=== PATIENT | male | born 1950 | race Caucasian/White ===

== ENCOUNTER 2020-04-08 06:00 | Outpatient (RCR) | payer MEDICARE, MEDICAID, SELFPAY | END 2020-04-08 23:00 | disposition home or self-care (01) | LOC: TOT 06:00 | PROVIDERS: Referring Provider Nurse Practitioner Family; Visit Provider Nurse Practitioner Family | DX: Z89.511 Acquired absence of right leg below knee (principal) | CPT/HCPCS: 97166 ==

== ENCOUNTER 2020-06-29 01:14 | Emergency (ER) | payer MEDICARE, MEDICAID, SELFPAY ==
[2020-06-29 01:19] VITALS: BP 165/98; PULSE 58; RESP 18; TEMP 36.3; O2SAT 98; BMI 32.7
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
--- NOTE | 2020-06-29 01:53 | PC.NURSE ---
patient to CT
[2020-06-29 03:20] VITALS: BP 162/106; PULSE 63; RESP 17; O2SAT 94
== END 2020-06-29 03:15 ==
PROVIDERS: Emergency Provider Nurse Practitioner Family
DX: S60.222A Contusion of left hand, initial encounter (principal); S16.1XXA Strain of muscle, fascia and tendon at neck level, initial encounter; V53.5XXA Driver of pick-up truck or van injured in collision with car, pick-up truck or van in traffic accident, initial encounter
CPT/HCPCS: 12345; 72125; 73130; 99281; 99283

== ENCOUNTER 2020-09-17 13:22 | Outpatient (RCR) | payer MEDICARE, MEDICAID, SELFPAY | END 2020-09-18 23:59 | disposition home or self-care (01) | LOC: SPT 13:22 | PROVIDERS: PCP Nurse Practitioner Family; Referring Provider Nurse Practitioner Family; Visit Provider Nurse Practitioner Family | DX: L03.116 Cellulitis of left lower limb (principal); L03.115 Cellulitis of right lower limb; R60.0 Localized edema | CPT/HCPCS: 29581; 97140; 97161 ==

== ENCOUNTER 2020-09-19 06:00 | Outpatient (RCR) | payer MEDICARE, MEDICAID, SELFPAY | END 2020-10-18 23:59 | disposition home or self-care (01) | LOC: SPT 06:00 | PROVIDERS: PCP Nurse Practitioner Family; Referring Provider Nurse Practitioner Family; Visit Provider Nurse Practitioner Family | DX: L03.116 Cellulitis of left lower limb (principal); L03.115 Cellulitis of right lower limb; R60.0 Localized edema | CPT/HCPCS: 29581; 97140 ==

== ENCOUNTER 2020-09-19 14:18 | Outpatient (CLI) | payer MEDICARE, MEDICAID, SELFPAY | END 2020-09-19 14:19 | disposition home or self-care (01) | LOC: WOUND 14:19 | PROVIDERS: PCP Nurse Practitioner Family; Visit Provider Thoracic Surgery (Cardiothoracic Vascular Surgery) | DX: L97.822 Non-pressure chronic ulcer of other part of left lower leg with fat layer exposed (principal); L97.819 Non-pressure chronic ulcer of other part of right lower leg with unspecified severity; Z89.511 Acquired absence of right leg below knee | CPT/HCPCS: 11042; 11045; G0463 ==

== ENCOUNTER 2020-09-26 14:20 | Outpatient (CLI) | payer MEDICARE, MEDICAID, SELFPAY | END 2020-09-26 14:21 | disposition home or self-care (01) | LOC: WOUND 14:21 | PROVIDERS: PCP Nurse Practitioner Family; Visit Provider Thoracic Surgery (Cardiothoracic Vascular Surgery) | DX: L97.822 Non-pressure chronic ulcer of other part of left lower leg with fat layer exposed (principal); L97.811 Non-pressure chronic ulcer of other part of right lower leg limited to breakdown of skin; Z89.511 Acquired absence of right leg below knee | CPT/HCPCS: 97597 ==

== ENCOUNTER 2020-10-02 15:14 | Outpatient (CLI) | payer MEDICARE, MEDICAID, SELFPAY | END 2020-10-02 15:15 | disposition home or self-care (01) | LOC: WOUND 15:16 | PROVIDERS: PCP Nurse Practitioner Family; Visit Provider Nurse Practitioner Family | DX: I89.0 Lymphedema, not elsewhere classified (principal); L97.822 Non-pressure chronic ulcer of other part of left lower leg with fat layer exposed; L97.812 Non-pressure chronic ulcer of other part of right lower leg with fat layer exposed; Z89.511 Acquired absence of right leg below knee | CPT/HCPCS: 11042; 11045 ==

== ENCOUNTER 2020-10-09 11:23 | Outpatient (CLI) | payer MEDICARE, MEDICAID, SELFPAY | END 2020-10-09 11:24 | disposition home or self-care (01) | LOC: WOUND 11:24 | PROVIDERS: PCP Nurse Practitioner Family; Visit Provider Thoracic Surgery (Cardiothoracic Vascular Surgery) | DX: L97.812 Non-pressure chronic ulcer of other part of right lower leg with fat layer exposed (principal); Z89.511 Acquired absence of right leg below knee | CPT/HCPCS: 97597 ==

== ENCOUNTER 2020-10-17 13:10 | Outpatient (CLI) | payer MEDICARE, MEDICAID, SELFPAY | END 2020-10-17 13:11 | disposition home or self-care (01) | LOC: WOUND 13:12 | PROVIDERS: PCP Internal Medicine; Visit Provider Nurse Practitioner Family | DX: Z09 Encounter for follow-up examination after completed treatment for conditions other than malignant neoplasm (principal) | CPT/HCPCS: 99212 ==

== ENCOUNTER 2020-10-19 06:00 | Outpatient (RCR) | payer MEDICARE, MEDICAID, SELFPAY | END 2020-11-18 23:59 | disposition home or self-care (01) | LOC: SPT 06:00 | PROVIDERS: PCP Internal Medicine; Referring Provider Nurse Practitioner Family; Visit Provider Nurse Practitioner Family | DX: L03.116 Cellulitis of left lower limb (principal); L03.115 Cellulitis of right lower limb; R60.0 Localized edema | CPT/HCPCS: 29581; 97140 ==

== ENCOUNTER 2020-11-19 06:00 | Outpatient (RCR) | payer MEDICARE, MEDICAID, SELFPAY | END 2020-12-18 23:59 | disposition home or self-care (01) | LOC: SPT 06:00 | PROVIDERS: PCP Internal Medicine; Referring Provider Nurse Practitioner Family; Visit Provider Nurse Practitioner Family | DX: L03.116 Cellulitis of left lower limb (principal); L03.115 Cellulitis of right lower limb; R60.0 Localized edema | CPT/HCPCS: 29581; 97140 ==

== ENCOUNTER 2020-11-20 06:52 | Outpatient (CLI) | payer MEDICARE, MEDICAID, SELFPAY ==
--- NOTE | 2020-11-20 08:45 | USCV_ITS ---
Gaetano Reveles Age: 70 Gender: M : 1950 Exam Date: 11/20/2020 08:22 Ordering Phys: Gaetano Pickett MD (Andy) ([email or web address]) Technologist: Kevin Patel Exam Location: [facility] – [place] Indication: LOWER EXT EDEMA BP: 185 / 87 HR: 64 Rhythm: Sinus Technical Quality: Adequate MEASUREMENTS (Male / Female) Normal Values 2D ECHO LV Diastolic Diameter PLAX 5.8 cm 4.2 - 5.9 / 3.9 - 5.3 cm LV Systolic Diameter PLAX 3.5 cm IVS Diastolic Thickness 1.1 cm 0.6 - 1.0 / 0.6 - 0.9 cm IVS Systolic Thickness 1.3 cm LVPW Diastolic Thickness 1.1 cm 0.6 - 1.0 / 0.6 - 0.9 cm LVPW Systolic Thickness 1.4 cm LVOT Diameter 2.0 cm LV Ejection Fraction 2D Teich 69.3 % LV Ejection Fraction MOD 2C 60.1 % LV Ejection Fraction 2C AL 59.7 % LA Diameter 4.2 cm LA Width 4.5 cm LA Height 5.5 cm RA Width 4.0 cm RA Height 4.3 cm Aorta at Sinotubular Diameter 4.0 cm M-MODE MV E Point Septal Separation 1.2 cm DOPPLER AV Peak Velocity 122.3 cm/s LVOT Peak Velocity 83.0 cm/s AV Area Cont Eq vti 2.6 cm squared AV Area Cont Eq pk 2.2 cm squared MV Area PHT 5.0 cm squared Mitral E to A Ratio 0.7 MV E' Velocity 43.0 cm/s Mitral E to MV E' Ratio 9.5 Mitral E to LV E' Lateral Ratio 9.0 Mitral E to LV E' Septal Ratio 10.0 TR Peak Velocity 128.3 cm/s TR Peak Gradient 6.6 mmHg TV Peak E Velocity 72.0 cm/s Right Atrial Pressure 3.0 mmHg Pulmonary Artery Systolic Pressu 9.6 mmHg FINDINGS Left Ventricle Normal left ventricular size. LV systolic function is normal with EF of 55-60%. No regional wall motion abnormalities. Grade 1 diastolic dysfunction Right Ventricle The right ventricle is normal in size and function. Right Atrium The right atrium is normal in size. Left Atrium The left atrium is normal in size. Mitral Valve Structurally normal mitral valve without significant stenosis or prolapse. There is trace mitral regurgitation. Aortic Valve Grossly normal without stenosis. There is mild aortic regurgitation. Tricuspid Valve Grossly normal without significant stenosis or regurgitation. Insufficient TR jet to calculate RVSP Pulmonic Valve Grossly normal Pericardium Normal pericardium without effusion. Aorta Normal ascending aorta dimension. CONCLUSIONS This is technically limited study because of poor ultrasonic windows. LV systolic function is normal with EF 55 to 60%. Grade 1 diastolic dysfunction. Trace mitral regurgitation. Mild aortic regurgitation. No comparison studies are available Konstantin Yepez MD (Electronically Signed) Final Date: 26 November 2020 22:37 S
--- NOTE | 2020-11-20 08:45 | USCV_ITS ---
Gaetano Reveles Age: 70 Gender: M : 1950 Exam Date: 11/20/2020 07:52 Ordering Phys: Gaetano Pickett MD (Andy) ([email or web address]) Technologist: Kevin Patel Exam Location: [facility] [place] Indication: PAD RIGHT LEFT Brachial 185.00 mmHg Brachial 185.00 mmHg Pressure (mmHg) Waveform Pressure (mmHg) Waveform [employer] 220.00 DPA 220.00 Pre-Exercise Toe Pressure 168.00 Pre-Exercise Toe/Brachial Index 0.91 FINDINGS RT LEG AMPUTEE BELOW THE KNEE Noncompressible arteries in the left leg Normal resting TBI on the left side Normal PVR waveforms CONCLUSIONS 1. No significant arterial obstruction on the left side. 2. Noncompressible vessels, suggestive of extensive arterio sclerosis Dr Jeremy Fiore MD FACC (Electronically Signed) Final Date: 21 November 2020 08:38 S
== END 2020-11-20 06:53 | disposition home or self-care (01) ==
LOC: RAD 06:53
PROVIDERS: PCP Internal Medicine; Visit Provider Thoracic Surgery (Cardiothoracic Vascular Surgery)
DX: R60.0 Localized edema (principal); M79.605 Pain in left leg; M79.604 Pain in right leg; I08.0 Rheumatic disorders of both mitral and aortic valves
CPT/HCPCS: 93306; 93923

== ENCOUNTER 2020-12-19 06:00 | Outpatient (RCR) | payer MEDICARE, MEDICAID, SELFPAY | END 2021-01-08 23:00 | disposition home or self-care (01) | LOC: SPT 06:00 | PROVIDERS: PCP Internal Medicine; Referring Provider Nurse Practitioner Family; Visit Provider Nurse Practitioner Family | DX: L03.116 Cellulitis of left lower limb (principal); L03.115 Cellulitis of right lower limb; R60.0 Localized edema | CPT/HCPCS: 97140 ==

== ENCOUNTER → 2022-07-13 11:54 | Outpatient (BNVA) | payer MEDICARE, MEDICAID, SELFPAY | PROVIDERS: PCP Internal Medicine; Visit Provider Family Medicine | DX: R60.9 Edema, unspecified (principal); E78.5 Hyperlipidemia, unspecified; I25.10 Atherosclerotic heart disease of native coronary artery without angina pectoris; I10 Essential (primary) hypertension; E55.9 Vitamin D deficiency, unspecified; Z12.5 Encounter for screening for malignant neoplasm of prostate | CPT/HCPCS: 80053; 80061; 82306; 84443; 85025; G0103 ==

== ENCOUNTER → 2022-11-12 16:38 | Outpatient (BNVA) | payer MEDICARE, MEDICAID, SELFPAY | PROVIDERS: PCP Family Medicine; Visit Provider Family Medicine | DX: E55.9 Vitamin D deficiency, unspecified (principal); E78.5 Hyperlipidemia, unspecified; I10 Essential (primary) hypertension; I25.10 Atherosclerotic heart disease of native coronary artery without angina pectoris; R60.9 Edema, unspecified | CPT/HCPCS: 80053; 80061; 82306; 84443; 85025 ==

== ENCOUNTER → 2022-11-23 09:31 | Outpatient (BNVA) | payer MEDICARE, MEDICAID, SELFPAY | PROVIDERS: PCP Family Medicine; Visit Provider Family Medicine | DX: R60.9 Edema, unspecified (principal) | CPT/HCPCS: 80048 ==

== ENCOUNTER → 2022-11-30 15:07 | Outpatient (BNVA) | payer MEDICARE, MEDICAID, SELFPAY | PROVIDERS: PCP Family Medicine; Visit Provider Family Medicine | DX: R60.9 Edema, unspecified (principal); R89.9 Unspecified abnormal finding in specimens from other organs, systems and tissues | CPT/HCPCS: 80048 ==